=== PATIENT | male | born 1985 | race Hispanic/Latino ===

== ENCOUNTER 2021-09-09 01:13 | Inpatient (IN) | payer SELFPAY ==
[~2021-09-09] VITALS: Ht 170.2 cm; Wt 88.5 kg
[2021-09-09] VITALS (8 sets, daily range): BP systolic 103–134; BP diastolic 51–85
[2021-09-09 01:24] LABS: BASOPHILS % 0.4 % (0.0-1.0); EOSINOPHILS # (AUTO) 0.2 (0.0-0.4); EOSINOPHILS % 2.4 % (0.0-6.0); HEMATOCRIT 30.3 % (38.2-49.6); HEMOGLOBIN 8.4 g/dL (14.0-18.0); LYMPHOCYTES # (AUTO) 1.7 (1.0-3.2); LYMPHOCYTES % 17.5 % (18.0-39.1); MEAN CORPUSCULAR HEMOGLOBIN 17.6 pg (28-32); MEAN CORPUSCULAR HGB CONC 27.7 g/dL (31-35); MEAN CORPUSCULAR VOLUME 63.4 fL (81-99); MONOCYTES # (AUTO) 1.5 (0.2-0.8); MONOCYTES % 15.1 % (4.4-11.3); NEUTROPHILS # (AUTO) 6.4 (2.1-6.9); NEUTROPHILS % 63.9 % (38.7-80.0); PLATELET COUNT 420 x10e3/uL (140-360); RED BLOOD COUNT 4.78 x10e6/uL (4.3-5.7)
[2021-09-09 01:44] LABS: ALBUMIN 4.2 g/dL (3.5-5.0); ALBUMIN/GLOBULIN RATIO 1.2 (0.8-2.0); ANION GAP 14.9 mmol/L (8-16); CALCIUM 8.5 mg/dL (8.4-10.2); CREATININE, SERUM 0.88 mg/dL (0.72-1.25); POTASSIUM 3.9 mmol/L (3.5-5.1)
[2021-09-09 02:18] LABS: AMYLASE 102 U/L (25-125); LIPASE 37 U/L (8-78)
[2021-09-09] MEDS ORDERED: ONDANSETRON HCL INJ 2MG/ML 2ML 2 MG/ML VIAL IV STA (02:31)
[2021-09-09] MEDS ORDERED: Morphine 4mg Syringe 4 MG/ML INJ IV ONE (02:45)
[2021-09-09] MEDS ORDERED: MULTIVITAMINS- 12 INJECTION 10 ML, FOLIC ACID MDV 1 MG, THIAMINE HCL INJ 100 MG in SODI... IV ONE (02:45)
[2021-09-09] MEDS ORDERED: ONDANSETRON HCL INJ 2MG/ML 2ML 2 MG/ML VIAL IV PRN (04:45)
[2021-09-09] MEDS ORDERED: Morphine 4mg Syringe 4 MG/ML INJ IV PRN (04:45)
[2021-09-09] MEDS ORDERED: SODIUM CHLORIDE FLUSH 10 ML SYR INJ PRN (04:45)
[2021-09-09 05:33] LABS: FERRITIN 9.87 ng/mL (21.81-274.66)
[2021-09-09] MEDS ORDERED: METOPROLOL TART25 MG PO (06:07)
[2021-09-09] MEDS ORDERED: PLAVIX75 MG PO (06:07)
[2021-09-09] MEDS ORDERED: LISINOPRIL10 MG PO (06:07)
[2021-09-09] MEDS ORDERED: ATORVASTATIN CA20 MG PO (06:08)
[2021-09-09] MEDS ORDERED: LEVOTHYROXINE50 MCG PO (06:08)
[2021-09-09] MEDS ORDERED: ASPIRIN81 MG PO (06:09)
[2021-09-09] MEDS ORDERED: Morphine 2mg Syringe 2 MG/ML SYR ONE (07:32)
[2021-09-09] MEDS ORDERED: CHLORDIAZEPOXIDE HCL 25 MG CAP PO PRN (10:00)
[2021-09-09] MEDS ORDERED: ACETAMINOPHEN 325 MG TAB PO PRN (10:00)
[2021-09-09 10:02] LABS: CREATINE KINASE MB 6.6 ng/mL (0-5.0)
[2021-09-09] MEDS: ISOSORBIDE MONONITRATE 30 MG TAB CR PO SCH (10:44)
[2021-09-09] MEDS: METOPROLOL TARTRATE 25 MG TAB PO SCH ×2 (10:45→17:21)
[2021-09-09] MEDS: CLOPIDOGREL BISULFATE 75 MG TAB PO SCH (10:47)
[2021-09-09 14:49] LABS: CREATINE KINASE MB 6.8 ng/mL (0-5.0)
[2021-09-09] MEDS ORDERED: ATORVASTATIN 20 MG TAB PO SCH (21:00)
[2021-09-10] VITALS: BP 127/71
[2021-09-10 04:00] VITALS: BP 116/71
[2021-09-10] MEDS ORDERED: LEVOTHYROXINE SODIUM 50 MCG TAB PO SCH (06:00)
[2021-09-10 06:02] LABS: BASOPHILS % 0.4 % (0.0-1.0); EOSINOPHILS # (AUTO) 0.6 (0.0-0.4); EOSINOPHILS % 6.6 % (0.0-6.0); HEMATOCRIT 30.5 % (38.2-49.6); HEMOGLOBIN 8.6 g/dL (14.0-18.0); LYMPHOCYTES # (AUTO) 2.4 (1.0-3.2); LYMPHOCYTES % 24.9 % (18.0-39.1); MEAN CORPUSCULAR HEMOGLOBIN 17.7 pg (28-32); MEAN CORPUSCULAR HGB CONC 28.2 g/dL (31-35); MEAN CORPUSCULAR VOLUME 62.6 fL (81-99); MONOCYTES # (AUTO) 1.2 (0.2-0.8); MONOCYTES % 12.5 % (4.4-11.3); NEUTROPHILS # (AUTO) 5.3 (2.1-6.9); PLATELET COUNT 456 x10e3/uL (140-360); RED BLOOD COUNT 4.87 x10e6/uL (4.3-5.7); RED CELL DISTRIBUTION WIDTH 18.2 % (11.7-14.4)
[2021-09-10 06:21] LABS: ANION GAP 14.2 mmol/L (8-16); CALCIUM 8.7 mg/dL (8.4-10.2); CHOL/HDL RATIO 3.3 (3.9-4.7); CREATININE, SERUM 0.87 mg/dL (0.72-1.25); POTASSIUM 4.2 mmol/L (3.5-5.1)
[2021-09-10 07:42] LABS: ANISOCYTOSIS MODERATE; HYPOCHROMASIA MODERATE; MICROCYTOSIS SLIGHT; PLATELET ESTIMATE SLIGHTLY INCREASED; RBC MORPHOLOGY COMMENT ABNORMAL
[2021-09-10 07:43] LABS: OVALOCYTES FEW; PLATELET MORPHOLOGY COMMENT FEW LARGE
[2021-09-10 07:44] LABS: LARGE PLATELETS FEW; PLATELET CLUMPS FEW
[2021-09-10 07:56] VITALS: BP 135/69
[2021-09-10 08:11] VITALS: BP 157/69
[2021-09-10] MEDS: ISOSORBIDE MONONITRATE 30 MG TAB CR PO SCH (08:58)
[2021-09-10] MEDS: CLOPIDOGREL BISULFATE 75 MG TAB PO SCH (08:58)
[2021-09-10] MEDS: METOPROLOL TARTRATE 25 MG TAB PO SCH (08:59)
[2021-09-10] MEDS ORDERED: LISINOPRIL 10 MG TAB PO SCH (09:00)
[2021-09-10 11:55] VITALS: BP 134/77
== END 2021-09-10 12:24 | disposition home or self-care (01) | DRG 391 ==
LOC: ER 01:17 → ERHOLD 04:41 → MED/SURG3 05:35 → OBSVTOIN 09-10 07:11
PROVIDERS: ADMIT Internal Medicine; ATTEND Internal Medicine
DX: K29.20 Alcoholic gastritis without bleeding (principal); K72.00 Acute and subacute hepatic failure without coma; Z95.5 Presence of coronary angioplasty implant and graft; I25.2 Old myocardial infarction; D50.9 Iron deficiency anemia, unspecified; I25.10 Atherosclerotic heart disease of native coronary artery without angina pectoris; F10.20 Alcohol dependence, uncomplicated; Z20.822 Contact with and (suspected) exposure to COVID-19; Y90.0 Blood alcohol level of less than 20 mg/100 ml
CPT/HCPCS: 36415; 71045; 76705; 80048; 80053; 80061; 80320; 82150; 82550; 82553; 82607; 82728; 82746; 83540; 83690; 84466; 84484; 85025; 93005; 94799; 99284; G0378; J2270; J2405; J3411; J7030; U0002

== ENCOUNTER 2021-11-07 22:30 | Emergency (ER) | payer SELFPAY ==
[~2021-11-07] VITALS: Ht 170.2 cm; Wt 88.5 kg
[~2021-11-07 22:30] MED LIST: ASPIRIN81 MG PO; ATORVASTATIN CA20 MG PO; LEVOTHYROXINE50 MCG PO; LISINOPRIL10 MG PO; METOPROLOL TART25 MG PO; PLAVIX75 MG PO
[2021-11-07] MEDS ORDERED: KETOROLAC TROMETHAMINE 30 MG/ML VIAL ONE (22:55)
[2021-11-07 23:01] LABS: ALBUMIN 4.3 g/dL (3.5-5.0); ALBUMIN/GLOBULIN RATIO 1.2 (0.8-2.0); ANION GAP 16.6 mmol/L (8-16); CALCIUM 9.2 mg/dL (8.4-10.2); CREATININE, SERUM 0.99 mg/dL (0.72-1.25); POTASSIUM 3.6 mmol/L (3.5-5.1)
[2021-11-07 23:11] LABS: BASOPHILS # (AUTO) 0.1 (0.0-0.1); BASOPHILS % 0.8 % (0.0-1.0); EOSINOPHILS # (AUTO) 1.1 (0.0-0.4); HEMATOCRIT 41.5 % (38.2-49.6); HEMOGLOBIN 12.4 g/dL (14.0-18.0); LYMPHOCYTES # (AUTO) 6.2 (1.0-3.2); LYMPHOCYTES % 40.1 % (18.0-39.1); MEAN CORPUSCULAR HEMOGLOBIN 20.8 pg (28-32); MEAN CORPUSCULAR HGB CONC 29.9 g/dL (31-35); MEAN CORPUSCULAR VOLUME 69.5 fL (81-99); MONOCYTES # (AUTO) 1.7 (0.2-0.8); MONOCYTES % 10.7 % (4.4-11.3); NEUTROPHILS # (AUTO) 6.3 (2.1-6.9); NEUTROPHILS % 40.9 % (38.7-80.0); PLATELET COUNT 481 x10e3/uL (140-360); RED BLOOD COUNT 5.97 x10e6/uL (4.3-5.7)
[2021-11-07 23:41] LABS: AMPHETAMINES SCREEN,URINE NEGATIVE (NEGATIVE); BENZODIAZEPINES SCREEN,URINE POSITIVE (NEGATIVE); PHENCYCLIDINE SCREEN,URINE NEGATIVE (NEGATIVE)
[2021-11-08 01:08] LABS: CREATINE KINASE MB 1.9 ng/mL (0-5.0)
== END 2021-11-08 01:34 | disposition home or self-care (01) ==
LOC: ER 22:40
DX: R07.89 Other chest pain (principal); I10 Essential (primary) hypertension; E78.5 Hyperlipidemia, unspecified; E03.9 Hypothyroidism, unspecified; F41.9 Anxiety disorder, unspecified; I25.2 Old myocardial infarction; Z95.5 Presence of coronary angioplasty implant and graft; R94.31 Abnormal electrocardiogram [ECG] [EKG]; F17.210 Nicotine dependence, cigarettes, uncomplicated
CPT/HCPCS: 36415; 71045; 80053; 80307; 82550; 82553; 84484; 85025; 93005; 99284; J1885

== ENCOUNTER 2022-02-08 00:02 | Emergency (ER) | payer OTHER ==
[~2022-02-08] VITALS: Ht 170.2 cm; Wt 81.6 kg
[2022-02-08] MEDS ORDERED: ONDANSETRON HCL INJ 2MG/ML 2ML 2 MG/ML VIAL IV STA (00:09)
[2022-02-08] MEDS ORDERED: Morphine 4mg Syringe 4 MG/ML INJ IV ONE (00:15)
[2022-02-08 00:19] LABS: BASOPHILS # (AUTO) 0.1 (0.0-0.1); BASOPHILS % 0.7 % (0.0-1.0); EOSINOPHILS # (AUTO) 0.5 (0.0-0.4); EOSINOPHILS % 4.5 % (0.0-6.0); HEMATOCRIT 48.4 % (38.2-49.6); HEMOGLOBIN 16.1 g/dL (14.0-18.0); LYMPHOCYTES % 32.8 % (18.0-39.1); MEAN CORPUSCULAR HGB CONC 33.3 g/dL (31-35); MONOCYTES # (AUTO) 1.2 (0.2-0.8); NEUTROPHILS # (AUTO) 6.2 (2.1-6.9); NEUTROPHILS % 51.3 % (38.7-80.0); PLATELET COUNT 300 x10e3/uL (140-360); RED BLOOD COUNT 5.76 x10e6/uL (4.3-5.7); RED CELL DISTRIBUTION WIDTH 15.5 % (11.7-14.4)
[2022-02-08 00:29] LABS: INR 0.96; PROTHROMBIN TIME 13.7 seconds (11.9-14.5)
[2022-02-08 00:30] LABS: PARTIAL THROMBOPLASTIN TIME 29.2 seconds (23.8-35.5)
[2022-02-08 00:38] LABS: ALANINE AMINOTRANSFERASE 31 IU/L (0-55); ALBUMIN 4.2 g/dL (3.5-5.0); ALBUMIN/GLOBULIN RATIO 1.1 (0.8-2.0); ALKALINE PHOSPHATASE 134 IU/L (40-150); ANION GAP 13.7 mmol/L (8-16); BLOOD UREA NITROGEN 14 mg/dL (7-26); BUN/CREATININE RATIO 15 (6-25); CALCIUM 9.3 mg/dL (8.4-10.2); CARBON DIOXIDE 26 mmol/L (22-29); CHLORIDE 102 mmol/L (98-107); CREATINE KINASE 127 IU/L (30-200); CREATININE, SERUM 0.93 mg/dL (0.72-1.25); GLUCOSE 96 mg/dL (74-118); POTASSIUM 3.7 mmol/L (3.5-5.1); SODIUM 138 mmol/L (136-145)
[2022-02-08 03:19] LABS: CREATINE KINASE 111 IU/L (30-200)
[2022-02-08 03:26] LABS: CREATINE KINASE MB < 1.00 ng/mL (0-4.3)
== END 2022-02-08 03:41 | disposition home or self-care (01) ==
LOC: ER 00:05
DX: R07.9 Chest pain, unspecified (principal); I10 Essential (primary) hypertension; E78.5 Hyperlipidemia, unspecified; E03.9 Hypothyroidism, unspecified; F41.9 Anxiety disorder, unspecified; R94.31 Abnormal electrocardiogram [ECG] [EKG]; I25.2 Old myocardial infarction; Z95.5 Presence of coronary angioplasty implant and graft
CPT/HCPCS: 36415; 71045; 80053; 82550; 82553; 83690; 83880; 84484; 85025; 85610; 85730; 93005; 99284; J2270; J2405